=== PATIENT | male | born 1955 | race Caucasian/White ===

== ENCOUNTER 2023-12-18 12:34 | Emergency (ER) | payer OTHER ==
[2023-12-18 13:00] VITALS: BP 107/68; PULSE 55; RESP 18; TEMP 97.8; BMI 25.8
== END 2023-12-18 15:41 | disposition home or self-care (01) ==
LOC: FER 12:34
DX: S00.83XA Contusion of other part of head, initial encounter (principal); W01.198A Fall on same level from slipping, tripping and stumbling with subsequent striking against other object, initial encounter; Y92.9 Unspecified place or not applicable
CPT/HCPCS: 70450-TC; 70486-TC; 72125-TC; 99284-25

== ENCOUNTER 2024-01-06 19:27 | Observation (INO) | payer OTHER ==
[2024-01-06 19:34] VITALS: BMI 23.7
[2024-01-06] MEDS ORDERED: HALOPERIDOL LACTATE 5 MG/ML ONE (19:58)
[2024-01-06 20:06] LABS: BASO % 0.9 % (0-2.0); EOS % 3.9 % (0-4.5); HEMATOCRIT 44.2 % (35.4-49); HEMOGLOBIN 15.1 GM/dL (11.7-16.9); LYMPH % 17.1 % (8-40); MCH 30.1 pg (25.7-33.7); MCHC 34.1 g/dl (32.0-35.9); MEAN CELL VOLUME 88.3 fl (80-96); MEAN PLT VOLUME 7.7 fl (7.5-11.1); MONO % 5.7 % (3.8-10.2); NEUT % 72.4 % (42.8-82.8); PLATELET COUNT 259 10^3/uL (134-434); RDW 13.7 % (11.9-15.9); WHITE BLOOD COUNT 5.8 K/mm3 (4.0-10.0)
[2024-01-06] MEDS: HALOPERIDOL LACTATE 5 MG/ML IM ONE (20:07)
[2024-01-06 20:25] LABS: INR 1.06 (0.83-1.09); PROTHROMBIN TIME (PATIENT) 12.3 SEC (9.7-13.0)
[2024-01-06 20:25] LABS: POTASSIUM 4.5 mmol/L (3.5-5.1)
[2024-01-06 20:27] LABS: ALBUMIN 3.9 g/dl (3.4-5.0); CALCIUM 9.6 mg/dL (8.5-10.1); MAGNESIUM 2.5 mg/dL (1.8-2.4)
[2024-01-06 20:28] LABS: ACTIVATED PTT 27.8 SECONDS (25.2-36.5)
[2024-01-06 20:30] LABS: CREATININE 0.9 mg/dL (0.55-1.3); PHOSPHOROUS 2.6 mg/dL (2.5-4.9)
[2024-01-06 20:32] LABS: BILIRUBIN,TOTAL 0.4 mg/dL (0.2-1); TOT PROT 7.3 g/dl (6.4-8.2)
[2024-01-06 20:35] LABS: N-TERMINAL BNP 157.1 pg/ml (5-125)
[2024-01-06] MEDS: LORazepam 2 MG/ML SDV VIAL IM ONE (20:39)
[2024-01-06 21:33] LABS: LACTIC ACID 4.4 mmol/L (0.4-2.0)
[2024-01-06] MEDS: SODIUM CHLORIDE 0.9% 500 ML INFUS.BAG IV ONE (22:16)
[2024-01-07] MEDS: SODIUM CHLORIDE 1,000 ML IV SCH (04:24)
[2024-01-07 07:44] LABS: BASO % 0.7 % (0-2.0); HEMOGLOBIN 14.1 GM/dL (11.7-16.9); LYMPH % 17.2 % (8-40); MCH 29.4 pg (25.7-33.7); MCHC 32.8 g/dl (32.0-35.9); MEAN CELL VOLUME 89.7 fl (80-96); MEAN PLT VOLUME 8.2 fl (7.5-11.1); MONO % 8.6 % (3.8-10.2); NEUT % 70.5 % (42.8-82.8); PLATELET COUNT 227 10^3/uL (134-434); RBC 4.79 M/mm3 (4.00-5.60); RDW 13.3 % (11.9-15.9); WHITE BLOOD COUNT 8.1 K/mm3 (4.0-10.0)
[2024-01-07 08:11] LABS: BLOOD UREA NITROGEN 14.9 mg/dL (7-18); CALCIUM 8.6 mg/dL (8.5-10.1)
[2024-01-07 08:15] LABS: CREATININE 0.8 mg/dL (0.55-1.3)
[2024-01-07] MEDS: FERROUS SO4 300 MG/5 ML ORAL SOLN UNIT DOSE CUPS PO SCH (11:46)
[2024-01-07] MEDS: MEMANTINE HCL 10 MG TABLET (FP) PO SCH (11:46)
[2024-01-07] MEDS ORDERED: QUEtiapine FUMARATE 25 MG TABLET ONE (19:12)
[2024-01-07] MEDS: QUEtiapine FUMARATE 50 MG TABLET PO SCH (19:14)
[2024-01-07] MEDS: DONEPEZIL HCL 10 MG TABLET (FP) PO SCH (21:33)
[2024-01-07] MEDS: ESCITALOPRAM OXALATE 10 MG TABLET PO SCH (21:33)
[2024-01-07] MEDS: LORazepam 2 MG/ML SDV VIAL IVPUSH ONE (21:34)
[2024-01-08] MEDS: levETIRAcetam 500 MG/5 ML INJECTION VIAL IVPB ONE (14:31)
[2024-01-08] MEDS: QUEtiapine FUMARATE 50 MG TABLET PO SCH (21:16)
[2024-01-08] MEDS: levETIRAcetam 500 MG/5 ML ORAL SOLUTION (UNIT-DOSE CUPS) PO SCH (21:16)
[2024-01-09] MEDS: DONEPEZIL HCL 10 MG TABLET (FP) PO SCH (06:44)
[2024-01-10] MEDS: LORazepam 2 MG/ML SDV VIAL IVPUSH ONE (01:06)
[2024-01-10] MEDS: QUEtiapine FUMARATE 50 MG TABLET PO SCH (10:01)
[2024-01-10 15:03] VITALS: RESP 18
[2024-01-10] MEDS: QUETIAPINE FUMARATE 50 MG, QUETIAPINE FUMARATE 25 MG PO SCH (21:32)
[2024-01-10] MEDS ORDERED: QUEtiapine FUMARATE 100 MG TABLET (FP) PO SCH ×2 (22:00)
[2024-01-11 06:01] VITALS: BP 159/65; PULSE 59; TEMP 98.6
== END 2024-01-11 16:44 ==
LOC: JER 19:27 → JERBED 22:40 → J8W 01-07 20:21
PROVIDERS: ADMIT Internal Medicine; ATTEND Family Medicine
PROC: 3E023GC Introduction of Other Therapeutic Substance into Muscle, Percutaneous Approach (ICD-10-PCS; principal; 2024-01-06)
PROC: 3E033GC Introduction of Other Therapeutic Substance into Peripheral Vein, Percutaneous Approach (ICD-10-PCS; 2024-01-06)
PROC: 3E033NZ Introduction of Analgesics, Hypnotics, Sedatives into Peripheral Vein, Percutaneous Approach (ICD-10-PCS; 2024-01-06)
PROC: 3E0337Z Introduction of Electrolytic and Water Balance Substance into Peripheral Vein, Percutaneous Approach (ICD-10-PCS; 2024-01-06)
DX: R56.9 Unspecified convulsions (principal); G30.9 Alzheimer's disease, unspecified; F41.8 Other specified anxiety disorders; R55 Syncope and collapse; Z91.013 Allergy to seafood; R01.1 Cardiac murmur, unspecified
CPT/HCPCS: 36415; 70450-TC; 80048; 80053; 82962; 83605; 83735; 83880; 84100; 84443; 84484; 85025; 85610; 85730; 86850; 86900; 86901; 87635; 93005; 93010; 96372; 96374; 96375; 96376; 99285-25; G0378